=== PATIENT | female | born 1970 | race Caucasian/White ===

== ENCOUNTER 2023-06-20 09:34 | Inpatient (IN) | payer MEDICAID ==
[~2023-06-20] VITALS: Ht 203.2 cm; Wt 95.3 kg
[2023-06-20] MEDS ORDERED: LORAZEPAM 1 MG TABLET ONE (14:45)
[2023-06-20] MEDS: LORAZEPAM 0.5 MG TABLET PO ONE (14:51)
[2023-06-20] MEDS ORDERED: hydrALAZINE HCL 25 MG TABLET PO PRN (18:30)
[2023-06-20] MEDS ORDERED: ONDANSETRON 4 MG/2 ML VIAL IV PRN (18:30)
[2023-06-20 20:00] VITALS: BP 138/88; TEMP 98.6; O2SAT 96
[2023-06-20] MEDS ORDERED: LORAZEPAM 0.5 MG TABLET PO PRN (20:00)
[2023-06-21 04:00] VITALS: BP 158/85; TEMP 98.1; O2SAT 97
[2023-06-21 09:11] LABS: BASOPHILS # (AUTO) 0.3 K/UL (0.0-0.2); BASOPHILS % (AUTO) 4.6 % (0.0-2.0); EOSINOPHILS # (AUTO) 0.1 K/uL (0.0-0.7); EOSINOPHILS % (AUTO) 1.4 % (0.0-7.0); HEMATOCRIT 41.8 % (31.2-41.9); LYMPHOCYTES % (AUTO) 18.1 % (20.5-51.5); MEAN CORPUSCULAR HEMOGLOBIN 29.6 uug (24.7-32.8); MEAN CORPUSCULAR HGB CONC 33 g/dL (32.3-35.6); MEAN CORPUSCULAR VOLUME 88.6 fL (75.5-95.3); MONOCYTES # (AUTO) 0.3 K/uL (0.1-1.30); MONOCYTES % (AUTO) 5.1 % (0.0-11.0); NEUTROPHILS % (AUTO) 70.8 % (38.5-71.5); PLATELET COUNT (AUTO) 324 K/uL (179-408); RED BLOOD CELL COUNT(AUTO) 4.72 MIL/uL (3.63-4.92); RED CELL DISTRIBUTION WIDTH 13.8 % (12.3-17.7); WHITE BLOOD COUNT (AUTO) 5.7 K/uL (3.8-11.8)
[2023-06-21 09:21] LABS: DIFFERENTIAL COMMENT 1
[2023-06-21 09:29] LABS: ALBUMIN 2.8 g/dL (3.4-5.0); BILIRUBIN,TOTAL 0.5 mg/dL (0.2-1.0); CALCIUM 8.7 mg/dL (8.5-10.1); CREATININE 0.8 mg/dL (0.6-1.3); PHOSPHOROUS 4.1 mg/dL (2.5-4.9); POTASSIUM 4.7 mmol/L (3.5-5.1); TOTAL PROTEIN, SERUM 7.7 g/dL (6.4-8.2)
[2023-06-21 09:39] LABS: THYROID STIMULATING HORMONE 3.574 mIU/mL (0.358-3.740)
[2023-06-21] MEDS: ACETAMINOPHEN 325 MG TABLET PO PRN (10:50)
[2023-06-21 11:53] VITALS: BP 139/83; TEMP 98.2; O2SAT 95
[2023-06-21 16:00] VITALS: BP 148/78; TEMP 98; O2SAT 95
[2023-06-21] MEDS ORDERED: DEXTROSE 50% 50 ML DISP.SYRIN IV PRN (17:00)
[2023-06-21] MEDS: HYDROCODONE/APAP 5-325MG TABLET PO PRN (17:12)
[2023-06-21 20:34] VITALS: BP 131/51; TEMP 97.3; O2SAT 98
[2023-06-21] MEDS: BLOOD SUGAR DIAGNOSTIC 1 EACH STRIP VI SCH (21:00)
[2023-06-22] MEDS: INSULIN REGULAR, HUMAN 300 UNIT/3 ML VIAL SQ PRN (00:17)
[2023-06-22 05:46] VITALS: BP 166/89; TEMP 97.5; O2SAT 96
[2023-06-22 11:30] VITALS: BP 144/68; TEMP 98.4; O2SAT 92
[2023-06-22] MEDS ORDERED: IBUP-1955 PO (14:54)
[2023-06-22] MEDS ORDERED: METF-442 PO (14:54)
[2023-06-22 15:38] VITALS: BP 148/83; TEMP 98.1; O2SAT 92
== END 2023-06-22 16:40 | disposition home health service (06) | DRG 347 ==
LOC: ER 09:39 → MEDSURG3 17:17
PROVIDERS: ADMIT Internal Medicine; ATTEND Nurse Practitioner Acute Care
DX: M46.1 Sacroiliitis, not elsewhere classified (principal); E11.9 Type 2 diabetes mellitus without complications; R53.1 Weakness; E78.5 Hyperlipidemia, unspecified; F79 Unspecified intellectual disabilities; M89.9 Disorder of bone, unspecified; R26.2 Difficulty in walking, not elsewhere classified; F84.0 Autistic disorder; Z91.81 History of falling; M81.0 Age-related osteoporosis without current pathological fracture; Z81.8 Family history of other mental and behavioral disorders; I51.7 Cardiomegaly; M17.0 Bilateral primary osteoarthritis of knee; M16.0 Bilateral primary osteoarthritis of hip; Z91.119 Patient's noncompliance with dietary regimen due to unspecified reason; Z79.84 Long term (current) use of oral hypoglycemic drugs
CPT/HCPCS: 36415; 70450; 71045; 72170; 72192; 73560; 73610; 83550; 83735; 84100; 84443; 85025; 93005; A4663; G0378; J1815